=== PATIENT | female | born 1980 | race American Indian/Alaskan Native ===

== ENCOUNTER 2020-08-24 09:53 | Outpatient (CLI) | payer OTHER | END 2020-08-24 09:54 | disposition home or self-care (01) | LOC: PF 09:53 | PROVIDERS: ATTEND Internal Medicine | DX: J45.909 Unspecified asthma, uncomplicated (principal); F41.9 Anxiety disorder, unspecified; G43.809 Other migraine, not intractable, without status migrainosus | CPT/HCPCS: 94010 ==